=== PATIENT | male | born 1955 | race Asian ===

== ENCOUNTER 2017-03-07 16:15 | Emergency (ER) | payer OTHER ==
[~2017-03-07] VITALS: Ht 175.3 cm; Wt 81.6 kg
[2017-03-07 16:16] VITALS: BP 142/79
[2017-03-07] MEDS ORDERED: VITA50003 PO (16:26)
[2017-03-07] MEDS ORDERED: MOVE1TAB PO (16:29)
--- NOTE | 2017-03-07 18:13 | REP ---
Left wrist series: Four views: History: Injury in a fall on outstretched arm. Findings: Overall mineralization pattern is normal. There is a well corticated ossific density dorsal to the carpus on the lateral radiograph consistent with an old dorsal triquetral chip fracture. This ossific density measures 6 mm in diameter. No acute fracture or subluxation is seen. Impression: A well corticated 6 mm ossicle dorsally adjacent to the carpal bones on lateral film most compatible with old triquetral chip fracture. No definite acute fracture is seen. Signed by Brett Eddy MD 03/07/2017 07:55 P
--- NOTE | 2017-03-07 20:02 | REP ---
Left shoulder series: Three views. History: Injury in a fall. Findings: The left glenohumeral and acromioclavicular joints are normally aligned. No fracture or subluxation is seen. Periarticular soft tissues are unremarkable. Impression: Negative left shoulder series. No fracture seen. Signed by Brett Eddy MD 03/07/2017 07:54 P
== END 2017-03-07 18:08 | disposition home or self-care (01) ==
LOC: M ED 16:48
DX: S49.92XA Unspecified injury of left shoulder and upper arm, initial encounter (principal); S63.502A Unspecified sprain of left wrist, initial encounter; W03.XXXA Other fall on same level due to collision with another person, initial encounter; Y92.017 Garden or yard in single-family (private) house as the place of occurrence of the external cause; Y93.66 Activity, soccer; Y99.8 Other external cause status; Z79.899 Other long term (current) drug therapy

== ENCOUNTER → 2019-07-10 | Outpatient (REF) | payer OTHER ==
[~2019-07-10] MED LIST: MOVE1TAB PO; VITA50005 PO
[2019-07-10 13:54] LABS: APPEARANCE, URINE CLEAR (CLEAR); BACTERIA, URINE AUTO NEGATIVE (NEGATIVE); BILIRUBIN, URINE AUTO NEGATIVE (NEGATIVE); BLOOD, URINE BLOOD NEGATIVE (NEGATIVE); COLOR, URINE YELLOW (YELLOW); GLUCOSE, URINE (UA) AUTO NEGATIVE (NEGATIVE); KETONE, URINE AUTO NEGATIVE (NEGATIVE); LEUKOCYTE ESTERASE, URINE AUTO NEGATIVE (NEGATIVE); MUCUS, URINE SMALL (NEGATIVE); NITRITE, URINE AUTO NEGATIVE (NEGATIVE); PROTEIN, URINE AUTO NEGATIVE (NEGATIVE); RBC, URINE AUTO 0 /HPF (0-3); SPECIFIC GRAVITY URINE AUTO 1.006 (1.002-1.035); SQUAMOUS EPITHELIAL CELL UR AU 0 /HPF (0-6); UROBILINOGEN, URINE AUTO 0.2 mg/dL (0.0-2.0); WBC, URINE AUTO 0 /HPF (0-3)
== END ==
LOC: M SMT 13:21
PROVIDERS: ATTEND Nurse Practitioner Women's Health
DX: R35.0 Frequency of micturition (principal)